=== PATIENT | male | born 1950 | race Caucasian/White ===

== ENCOUNTER → 2020-11-19 | Outpatient (CLI) | payer MEDICARE ==
--- NOTE | 2020-11-19 13:25 | RAD ---
CT LOW DOSE LUNG SCREEN HISTORY: NICOTINE DEPENDENCE / 49 YRS, 1/2 PPD, NO FAMILY HX OF LUNG CANCER COMPARISON: None. TECHNIQUE: Low-dose noncontrast CT scan of the chest. FINDINGS: Aorta and great vessels: No aneurysm of the aortic arch or thoracic aorta is seen. Mild atherosclerot ic calcification. Thyroid: No significant abnormalities. Mediastinum and dalia: No mediastinal masses or adenopathy is seen. Esophagus: The visualized esophagus is normal. Heart: The heart is normal in size. There is no pericardial effusion. Mild coronary artery calcificat ion. Trachea: The visualized tracheobronchial tree is normal. Lungs: Mild emphysematous change. 4 mm right lower lobe pulmonary nodule (axial 230). Pleural space: There is no pneumothorax or pleural effusion. Upper abdomen: Limited evaluation of the upper abdomen is unremarkable. Osseous structures and soft tissues: Within normal limits for age. IMPRESSION: 1. Small pulmonary nodules measuring less than 6 mm. 2. Mild emphysematous change and mild coronary artery calcification. LUNG RADS: Category 2: Benign appearance or behavior. Follow up: Continue annual screening with LDCT in 12 months. Exposure: One or more of the following individualized dose reduction techniques were utilized for thi s examination: 1. Automated exposure control 2. Adjustment of the mA and/or kV according to patient size 3. Use of iterative reconstruction technique. Electronically signed by: Tapan Fitch MD (11/19/2020 1:23 PM) [facility]
== END ==
LOC: CT 11:25
PROVIDERS: ATTEND Nurse Practitioner Family
DX: J43.9 Emphysema, unspecified (principal); R91.1 Solitary pulmonary nodule; I25.10 Atherosclerotic heart disease of native coronary artery without angina pectoris; F17.210 Nicotine dependence, cigarettes, uncomplicated
CPT/HCPCS: 71271